=== PATIENT | male | born 1980 | race Caucasian/White ===

== ENCOUNTER 2020-03-31 16:54 | Emergency (ER) | payer BC, OTHER ==
[~2020-03-31] VITALS: Ht 177.8 cm; Wt 90.7 kg
[~2020-03-31 16:54] MED LIST: IBUPROFEN600 MG ORAL; MEDROL DOSEPAK4 MG ORAL; PEPCID20 MG ORAL; PREDNISONE20 M1 PO
--- NOTE | 2020-03-31 17:05 | NUR ---
ED Nurse Note: Recieved pt from home, hre with c/o congested cough x 3 days with yelow color tinged sputum, pt denies fevers, pain, or any other complaints, pt is [employer] general [employer] and concerned, pt placed on monitoring, o2 sat=97% on RA, pt gowned and placed on monitoring, will resume care as ordered and closely monitor.
[2020-03-31 17:30] VITALS: BP 126/92
--- NOTE | 2020-03-31 17:41 | Emergency Room Report ---
History of Present Illness General Chief Complaint: Upper Respiratory Illness Source: Patient Present Illness HPI 39-year-old male with no significant past medical history here complaining of 2 days of cough, shortness of breath, wheezing and chest pressure. 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 Patient reports that he has to prone himself at night to sleep. Denies any abdominal pain, nausea vomiting complains of minimal diarrhea. Reports that he has nonbloody diarrhea. Denies loss of taste and smell. Denies headache and dizziness, fever and chills. Patient has normal vital signs, O2 sats within normal limits , patient is afebrile medication and medical. Reports that he used to smoke for 20 years and has not smoked for over a year now. Denies all other drug use , alcohol intake. Sitting comfortably and speaking in full sentences and in no distress. Allergies: Coded Allergies: No Known Allergies (Unverified , 03/02/15) COVID-19 Screening Contact w/high risk pt: No Experienced COVID-19 symptoms?: No COVID-19 Testing performed ADDICTIONS THERAPIST: No Patient History Past Medical History: see triage record Past Surgical History: none Pertinent Family History: none Immunizations: UTD Reviewed Nursing Documentation: PMH: Agreed; PSxH: Agreed Nursing Documentation-PMH Past Medical History: No History, Except For History Of Psychiatric Problem: Yes - bipolar Review of Systems All Other Systems: negative except mentioned in HPI Physical Exam Vital Signs Date Time Temp Pulse Resp B/P (MAP) Pulse Ox O2 Delivery O2 Flow Rate FiO2 03/31/20 17:07 97.7 75 17 145/100 (115) 97 Room Air Sp02 EP Interpretation: reviewed, normal General Appearance: no apparent distress, alert, GCS 15, non-toxic Head: normocephalic, atraumatic Eyes: bilateral eye normal inspection, bilateral eye PERRL ENT: hearing grossly normal, normal pharynx, no angioedema, normal voice Neck: full range of motion, supple/symm/no masses Respiratory: chest non-tender, lungs clear, normal breath sounds, no rhonchi, no respiratory distress, speaking full sentences, wheezing - Diffuse Cardiovascular #1: regular rate, rhythm, no edema Gastrointestinal: normal bowel sounds, non tender, soft, non-distended, no guarding, no rebound Genitourinary: no CVA tenderness Musculoskeletal: back normal, no calf tenderness Neurologic: alert, motor strength/tone normal, oriented x3, sensory intact, responsive, speech normal Psychiatric: judgement/insight normal, memory normal, mood/affect normal, no suicidal/homicidal ideation Skin: no rash Lymphatic: no adenopathy Medical Decision Making PA Attestation All diagnosis and treatment plans were discussed and reviewed by my supervising physician Dr. Patel Diagnostic Impression: Primary Impression: Acute bacterial bronchitis ER Course 39-year-old male with no significant past medical history here complaining of 2 days of cough, shortness of breath, wheezing and chest pressure. Reports that he works at a [employer] incompatible a lot of people. Patient reports that he has to prone himself at night to sleep. Denies any abdominal pain, nausea vomiting complains of minimal diarrhea. Reports that he has nonbloody diarrhea. Denies loss of taste and smell. Denies headache and dizziness, fever and chills. Patient has normal vital signs, O2 sats within normal limits , patient is afebrile medication and medical. Reports that he used to smoke for 20 years and has not smoked for over a year now. Denies all other drug use , alcohol intake. Sitting comfortably and speaking in full sentences and in no distress. Ddx considered but are not limited to: bronchitis, PNA, URI viral, bacterial bronchitis, coronavirus Vital signs: are WNL, pt. is afebrile H&PE are most consistent with: acute bacterial bronchitis due to patient smoking history ORDERS: Chest x-ray, rapid COVID swab, azithromycin, prednisone, Phenergan DM, albuterol inhaler ED INTERVENTIONS: None required at this time. DISCHARGE: At this time pt. is stable for d/c to home. Will provide printed patient care instructions, and any necessary prescriptions. Care plan and follow up instructions have been discussed with the patient prior to discharge. Patient take medication as directed, increase oral hydration, worsening symptoms return to emergency room. Chest X-Ray Diagnostic Results Chest X-Ray Diagnostic Results : Chest X-Ray Ordered: Yes # of Views/Limited/Complete: 1 View Indication: Shortness of Breath EP Interpretation: Yes PA Xray: Interpretation reviewed, by supervising MD, and agrees with findings. Interpretation: no consolidation, no effusion, no pneumothorax, no acute cardiopulmonary disease Impression: No acute disease Electronically Signed by: Debbie Christianson PA-C Last Vital Signs Date Time Temp Pulse Resp B/P (MAP) Pulse Ox O2 Delivery O2 Flow Rate FiO2 03/31/20 17:30 97.7 72 17 126/92 97 Room Air Disposition: HOME, SELF-CARE Condition: Stable Referrals: NOT CHOSEN IPA/MD,REFERRING (PCP) Patient Instructions: Acute Bronchitis, [id number] Additional Instructions: Take medication as directed, follow with your primary care provider, increase oral hydration, worsening symptoms return to the emergency room Debbie Rios Mar 31, 2020 17:41
--- NOTE | 2020-03-31 17:47 | Diagnostic Imaging Report ---
EXAM: XR Chest, 1 View CLINICAL HISTORY: COUGH TECHNIQUE: Frontal view of the chest. COMPARISON: None FINDINGS: Lungs: Unremarkable. No consolidation. Pleural space: Unremarkable. No pneumothorax. Heart: Unremarkable. No cardiomegaly. Mediastinum: Unremarkable. Bones/joints: Unremarkable. IMPRESSION: No acute cardiopulmonary process.
[2020-03-31] MEDS ORDERED: PREDNISONE20 MG ORAL (18:10)
[2020-03-31] MEDS ORDERED: VENTOLIN HFA18 GM INH (18:10)
[2020-03-31] MEDS ORDERED: ZITHROMAX250 MG ORAL (18:10)
[2020-03-31] MEDS ORDERED: PROMETHAZINE-D118 ML ORAL (18:10)
[2020-03-31 18:15] VITALS: BP 122/80
--- NOTE | 2020-03-31 18:15 | NUR ---
ER DISCHARGE NOTE: Patient is cleared to be discharged per ERMD, pt is aox4, on room air, with stable vital signs. pt was given dc and prescription instructions, pt was able to verbalize understanding, pt id band removed without complications. pt is able to ambulate with steady gait. pt took all belongings.
[2020-03-31 18:25] VITALS: BP 122/80
== END 2020-03-31 18:25 | disposition home or self-care (01) ==
LOC: EMR 17:26
DX: J20.9 Acute bronchitis, unspecified (principal); R19.7 Diarrhea, unspecified; F31.9 Bipolar disorder, unspecified
CPT/HCPCS: 71045; 99283; U0002

== ENCOUNTER 2020-04-27 20:31 | Emergency (ER) | payer BC ==
[~2020-04-27] VITALS: Ht 177.8 cm; Wt 90.7 kg
[~2020-04-27 20:31] MED LIST changes: +PREDNISONE20 MG ORAL; +PROMETHAZINE-D118 ML ORAL; +VENTOLIN HFA18 GM INH; +ZITHROMAX250 MG ORAL
[2020-04-27 20:50] VITALS: BP 137/97
[2020-04-27] MEDS ORDERED: Albuterol/Ipratropium 3ml neb HHN ONE (21:00)
[2020-04-27] MEDS ORDERED: PREDNISONE20 MG ORAL ×2 (21:59→22:17)
[2020-04-27] MEDS ORDERED: ALBUTEROL SULF8.5 G1 INH ×2 (21:59→22:17)
[2020-04-27] MEDS ORDERED: PROMETHAZINE-D118 ML ORAL (22:17)
[2020-04-27 22:20] VITALS: BP 129/85
--- NOTE | 2020-04-29 08:11 | Emergency Room Report ---
History of Present Illness General Chief Complaint: Upper Respiratory Illness Source: Patient Present Illness HPI 39-year-old male presents complaining of cough shortness of breath for the last 2 days. States he has history of bronchitis. Was seen here 1 month ago for similar presentation. States his treatment resolved his symptoms but symptoms started again 2 days ago. Denies fevers or chills. Cough is dry. Denies chest pain. Denies sick contacts or recent travel. No other aggravating relieving factors. Denies any other associated symptoms Allergies: Coded Allergies: No Known Allergies (Unverified , 03/02/15) COVID-19 Screening Contact w/high risk pt: No Experienced COVID-19 symptoms?: Yes COVID-19 Testing performed ADULT CARE MANAGER: No Patient History Past Medical History: other - bronchitis Past Surgical History: none Pertinent Family History: none Social History: Denies: smoking, alcohol use, drug use Immunizations: UTD Reviewed Nursing Documentation: PMH: Agreed; PSxH: Agreed Review of Systems All Other Systems: negative except mentioned in HPI Physical Exam Vital Signs Date Time Temp Pulse Resp B/P (MAP) Pulse Ox O2 Delivery O2 Flow Rate FiO2 04/27/20 20:40 97.2 79 18 137/97 (110) 97 Room Air 04/27/20 21:54 21 Sp02 EP Interpretation: reviewed, normal General Appearance: no apparent distress, alert, GCS 15, non-toxic Head: normocephalic, atraumatic Eyes: bilateral eye normal inspection, bilateral eye PERRL ENT: hearing grossly normal, normal pharynx, no angioedema, normal voice Neck: full range of motion, supple/symm/no masses Respiratory: chest non-tender, normal breath sounds, speaking full sentences, wheezing Cardiovascular #1: regular rate, rhythm, no edema Cardiovascular #2: 2+ carotid (R), 2+ carotid (L), 2+ radial (R), 2+ radial (L), 2+ dorsalis pedis (R), 2+ dorsalis pedis (L) Gastrointestinal: normal bowel sounds, non tender, soft, non-distended, no guarding, no rebound Rectal: deferred Genitourinary: normal inspection, no CVA tenderness Musculoskeletal: back normal, normal range of motion, gait/station normal, non- tender Neurologic: alert, motor strength/tone normal, oriented x3, sensory intact, responsive, speech normal Psychiatric: judgement/insight normal, memory normal, mood/affect normal, no suicidal/homicidal ideation Reflexes: 3+ bicep (R), 3+ bicep (L), 3+ tricep (R), 3+ tricep (L), 3+ knee (R), 3+ knee (L) Lymphatic: no adenopathy Medical Decision Making Diagnostic Impression: Primary Impression: Bronchitis ER Course Hospital Course 39 yo M presents to ED c/o cough. Differential diagnoses include: URI, bronchitis, asthma/COPD, pneumonia Clinical course Patient placed on stretcher. After initial history and physical I ordered rapid COVID, prednisone and nebulizer treatment. COVID negative. Given breathing treatment and prednisone. Upon reassessment patient states cough and symptoms have improved. Findings consistent with bronchitis. Discussed findings with patient. Safe for discharge with close outpatient follow-up. States he has a PMD Diagnosis - bronchitis Stable and discharged home with prescriptions for Rx prednisone, promethazine, albuterol. Instructed to followup with PMD. Return to ED if symptoms recur or worsen Last Vital Signs Date Time Temp Pulse Resp B/P (MAP) Pulse Ox O2 Delivery O2 Flow Rate FiO2 04/27/20 22:20 98.0 83 20 129/85 99 Room Air 04/27/20 22:06 21 Status: improved Disposition: HOME, SELF-CARE Condition: Stable Scripts Albuterol Sulfate* (Albuterol Sulfate Hfa*) 8.5 Gm Hfa.aer.ad 2 PUFF INH Q4H, #1 INH Prov: Awais Garza MD 04/27/20 Prednisone* (PREDNISONE*) 20 Mg Tablet 40 MG ORAL DAILY, #10 TAB Prov: Awais Garza MD 04/27/20 D-Methorphan Hb/Prometh Hcl* (PROMETHAZINE-DM SYRUP*) 118 Ml Syrup 5 ML ORAL Q6H PRN for For Cough, #200 ML 0 Refills Prov: Awais Garza MD 04/27/20 Referrals: NOT CHOSEN IPA/,REFERRING (PCP) Patient Instructions: Acute Bronchitis, [id number] Awais Garza MD Apr 29, 2020 08:11
== END 2020-04-27 22:20 | disposition home or self-care (01) ==
LOC: EMR 20:48
DX: J20.9 Acute bronchitis, unspecified (principal)
CPT/HCPCS: 94640; 99284; J7512; U0002; J7620